=== PATIENT | male | born 1995 | race Caucasian/White ===

== ENCOUNTER 2019-11-21 10:18 | Emergency (ER) | payer SELFPAY ==
[~2019-11-21] VITALS: Ht 162.6 cm; Wt 50.8 kg
[2019-11-21 10:56] LABS: microscopic required? NO
[2019-11-21 11:10] LABS: CALCIUM 10.1 mg/dL (8.5-10.1); CARBON DIOXIDE 29.8 mmol/L (21-32); CHLORIDE SERUM 100 mmol/L (98-107); CREATININE SERUM 0.8 mg/dL (0.7-1.3); GFR1 > 60 mL/min; GLUCOSE SERUM 102 mg/dL (74-106); POTASSIUM SERUM 4.2 mmol/L (3.5-5.1); SODIUM SERUM 138 mmol/L (136-145)
[2019-11-21 11:15] LABS: ALBUMIN 4.1 g/dL (3.4-5.0); ALKALINE PHOSPHATASE 104 U/L (46-116); ALT/SGPT 21 U/L (16-63); AST/SGOT 13 U/L (15-37); BILIRUBIN TOTAL 1.1 mg/dL (0.20-1.00); LIPASE 497 IU/L (73-393)
[2019-11-21 11:23] LABS: BASOPHIL % 0.2 % (0-2); PLATELET COUNT 267 x10^3mcL (130-400); RED CELL DISTRIBUTION WIDTH 12.3 % (11.5-14.5)
[2019-11-21 11:28] LABS: urine erythrocyte NEGATIVE (NEGATIVE)
[2019-11-21 11:41] LABS: TOTAL PROTEIN, SERUM 8.6 g/dL (6.4-8.2)
[2019-11-21 13:25] VITALS: BP 126/66
[2019-11-21 13:45] LABS: AMPHETAMINE QUAL UR NONE DETECTED (See below)
== END 2019-11-21 13:25 | disposition left against medical advice (07) ==
LOC: ED 10:18
PROVIDERS: Emergency Medicine
DX: K85.90 Acute pancreatitis without necrosis or infection, unspecified (principal); F17.210 Nicotine dependence, cigarettes, uncomplicated; F12.20 Cannabis dependence, uncomplicated
CPT/HCPCS: 36415; 99406; J1885